=== PATIENT | female | born 1975 | race Caucasian/White ===

== ENCOUNTER 2018-04-28 12:34 | Emergency (ER) | payer BC, OTHER ==
[~2018-04-28] VITALS: Ht 170.2 cm; Wt 90.9 kg
[2018-04-28 12:55] LABS: HEMATOCRIT 42.1 % (36.0-46.0); HEMOGLOBIN 14.7 G/DL (11.9-15.5); MCH 34.1 PG (29.0-34.0); MCHC 34.9 G/DL (30.0-36.0); MCV 97.7 FL (83-99); PLATELET COUNT 303 K/uL (156-360); RBC DIS.WIDTH-CV 11.7 % (11.8-14.6); RBC DIS.WIDTH-SD 42.2 % (39-53); RED BLOOD COUNT 4.31 M/uL (3.80-5.20); WHITE BLOOD COUNT 10.6 K/uL (4.1-10.2)
[2018-04-28 13:04] LABS: CHLORIDE 105 mEq/L (99-109); POTASSIUM 4.1 mEq/L (3.7-5.4); SODIUM 138 mEq/L (136-147)
[2018-04-28 13:06] LABS: GLUCOSE 120 mg/dL (70-99)
[2018-04-28 13:10] LABS: CREATININE 0.8 mg/dL (0.6-1.3); GFR ESTIMATE (CALCULATED) > 59 mL/min/; UREA NITROGEN (BUN) 12 mg/dL (9-23)
[2018-04-28 13:18] LABS: QUANTITATIVE HCG < 4.0 MIU/ML
[2018-04-28 14:16] LABS: ALBUMIN 4.6 g/dL (3.2-4.8)
[2018-04-28 14:18] LABS: TOTAL PROTEIN 7.8 g/dL (6.4-8.3)
[2018-04-28 14:20] LABS: TOTAL BILIRUBIN 0.6 mg/dL (0.0-1.0)
[2018-04-28 14:21] LABS: ALKALINE PHOSPHATASE 80 IU/L (3-129)
[2018-04-28 14:24] LABS: ALT (GPT) 43 IU/L (3-49); AST (GOT) 22 IU/L (2-34); DIRECT BILIRUBIN 0.2 mg/dL (0.0-0.3)
[2018-04-28 15:16] LABS: APPEARANCE SL.HAZY ((CLEAR)); BILIRUBIN NEGATIVE; BLOOD SMALL; COLOR YELLOW ((YELLOW)); GLUCOSE (STRIP) NEGATIVE; KETONES 5; LEUKOCYTES NEGATIVE; NITRITE NEGATIVE; PROTEIN (STRIP) 30; SPECIFIC GRAVITY 1.021 (1.000-1.030); UROBILINOGEN 0.2 MG/DL (0.2-1.0)
[2018-04-28 15:32] LABS: BACTERIA NONE SEEN /HPF; EPITHELIAL CELLS RARE /HPF; MUCUS 1+ /LPF; UCUL ADDED? NO; WHITE BLOOD CELLS 0-5 /HPF (0-5)
[2018-04-28] MEDS ORDERED: ZOFRAN ODT8 MG PO (15:49)
[2018-04-28 16:02] VITALS: BP 128/76
== END 2018-04-28 16:08 | disposition home or self-care (01) ==
LOC: EME 12:34
DX: G43.909 Migraine, unspecified, not intractable, without status migrainosus (principal); R11.2 Nausea with vomiting, unspecified; E86.0 Dehydration; R10.10 Upper abdominal pain, unspecified; Z90.49 Acquired absence of other specified parts of digestive tract; Z88.0 Allergy status to penicillin
CPT/HCPCS: 80048; 80076; 81003; 84702; 85027; 99281; 99285; J0780; J7040